=== PATIENT | female | born 1980 | race Caucasian/White ===

== ENCOUNTER 2018-02-21 11:01 | Outpatient (CLI) | payer OTHER ==
[~2018-02-21] VITALS: Ht 162.6 cm; Wt 84.9 kg
[~2018-02-21 11:01] MED LIST: DELTASONE20 M1 PO; LEVAQUIN500 MG PO; NAPROSYN500 MG PO; NORCO 5/3251 TABLET PO; PEN-VEE K,VEET500 MG PO
[2018-02-21 11:27] LABS: HEMATOCRIT 32.4 % (36.0-46.0); HEMOGLOBIN 10.5 G/DL (11.9-15.5); MCH 24.6 PG (29.0-34.0); MCHC 32.4 G/DL (30.0-36.0); MCV 75.9 FL (83-99); PLATELET COUNT 293 K/uL (156-360); RBC DIS.WIDTH-CV 17.2 % (11.8-14.6); RBC DIS.WIDTH-SD 45.7 % (39-53); RED BLOOD COUNT 4.27 M/uL (3.80-5.20); WHITE BLOOD COUNT 17.4 K/uL (4.1-10.2)
[2018-02-21 11:30] LABS: APPEARANCE SL.HAZY ((CLEAR)); BILIRUBIN MODERATE; BLOOD NEGATIVE; COLOR AMBER ((YELLOW)); GLUCOSE (STRIP) NEGATIVE; KETONES NEGATIVE; LEUKOCYTES TRACE; NITRITE NEGATIVE; PROTEIN (STRIP) 30; SPECIFIC GRAVITY 1.013 (1.000-1.030)
[2018-02-21 11:31] LABS: ICTOTEST ND
[2018-02-21 11:36] LABS: ALBUMIN 3.4 g/dL (3.2-4.8)
[2018-02-21 11:37] LABS: CHLORIDE 104 mEq/L (99-109); POTASSIUM 4.8 mEq/L (3.7-5.4); SODIUM 136 mEq/L (136-147)
[2018-02-21 11:38] LABS: BACTERIA RARE /HPF; EPITHELIAL CELLS 2+ /HPF; MUCUS TRACE /LPF; RED BLOOD CELLS 0-5 /HPF (0-5); UCUL ADDED? YES
[2018-02-21 11:39] LABS: GLUCOSE 93 mg/dL (70-99); TOTAL PROTEIN 6.8 g/dL (6.4-8.3)
[2018-02-21 11:41] LABS: TOTAL BILIRUBIN 9.2 mg/dL (0.0-1.0)
[2018-02-21 11:42] LABS: ALKALINE PHOSPHATASE 206 IU/L (3-129)
[2018-02-21 11:43] LABS: CREATININE 0.8 mg/dL (0.6-1.3); GFR ESTIMATE (CALCULATED) > 59 mL/min/
[2018-02-21 11:44] LABS: UREA NITROGEN (BUN) 5 mg/dL (9-23)
[2018-02-21 11:46] LABS: ALT (GPT) 486 IU/L (3-49)
[2018-02-21 11:51] LABS: AST (GOT) 1042 IU/L (2-34)
[2018-02-21 12:09] LABS: QUANTITATIVE HCG 23214.7 MIU/ML
[2018-02-21 12:31] LABS: DIRECT BILIRUBIN 7.2 mg/dL (0.0-0.3)
[2018-02-21 13:31] VITALS: BP 124/79
[2018-02-21] MEDS ORDERED: PRENATAL TABLE1 EAC3 PO (14:01)
[2018-02-21] MEDS ORDERED: TYLENOL EXTRA500 MG PO (14:02)
[2018-02-21 14:18] LABS: UR CREATININE CONCENTRATION 153.7 MG/DL
[2018-02-21 14:36] LABS: AMPHETAMINE NEGATIVE (500 ng/mL); BARBITURATES NEGATIVE (200 ng/mL); BENZODIAZEPINES NEGATIVE (150 ng/mL); BUPRENORPHINE NEGATIVE (10 ng/mL); COCAINE NEGATIVE (150 ng/mL); METHADONE NEGATIVE (200 ng/mL); METHAMPHETAMINE NEGATIVE (500 ng/mL); OPIATES (MORPHINE) NEGATIVE (100 ng/mL); OXYCODONE NEGATIVE (100 ng/mL); PHENCYCLIDINE NEGATIVE (25 ng/mL); PROPOXYPHENE NEGATIVE (300 ng/mL); THC CANNABINOIDS PRESUMPTIVE POSITIVE (50 ng/mL); TRICYCLIC ANTIDEPRESSANTS NEGATIVE (300 ng/mL)
[2018-02-21 16:02] VITALS: BP 135/85
[2018-02-21 17:07] LABS: INTER. NORMALIZED RATIO 1.1
[2018-02-21 18:21] VITALS: BP 115/66
[2018-02-21 20:22] VITALS: BP 134/63
[2018-02-21 20:38] VITALS: BP 152/72
[2018-02-22 01:06] VITALS: BP 126/86
[2018-02-22 06:54] LABS: BASOPHIL (%) 0.3 % (0-1); EOSINOPHIL (%) 1.2 % (0-5); EOSINOPHIL COUNT 0.2 K/uL (0-0.3); HEMATOCRIT 26.3 % (36.0-46.0); HEMOGLOBIN 8.4 G/DL (11.9-15.5); IMMATURE GRANULOCYTE (%) 1.7 % (0.0-0.7); LYMPHOCYTE (%) 11.7 % (15-42); LYMPHOCYTE COUNT 1.7 K/uL (1.0-2.8); MCH 24.1 PG (29.0-34.0); MCHC 31.9 G/DL (30.0-36.0); MCV 75.4 FL (83-99); MONOCYTE (%) 7.1 % (3-12); NEUTROPHIL COUNT 11.1 K/uL (1.8-6.4); PLATELET COUNT 240 K/uL (156-360); RBC DIS.WIDTH-CV 17.2 % (11.8-14.6); RBC DIS.WIDTH-SD 45.5 % (39-53); RED BLOOD COUNT 3.49 M/uL (3.80-5.20); WHITE BLOOD COUNT 14.2 K/uL (4.1-10.2)
[2018-02-22 07:12] LABS: ALBUMIN 2.6 G/DL (3.2-4.8); ALKALINE PHOSPHATASE 140 IU/L (3-129); ALT (GPT) 313 IU/L (3-49); AST (GOT) 701 IU/L (2-34); CHLORIDE 104 MEQ/L (99-109); CREATININE 0.7 MG/DL (0.6-1.3); GFR ESTIMATE (CALCULATED) > 59 mL/min/; GLUCOSE 80 mg/dL (70-99); SODIUM 138 MEQ/L (136-147); TOTAL BILIRUBIN 8.7 MG/DL (0.0-1.0); TOTAL PROTEIN 4.9 G/DL (6.4-8.3); UREA NITROGEN (BUN) 5 mg/dL (9-23)
[2018-02-22 07:13] LABS: POTASSIUM 3.8 MEQ/L (3.7-5.4)
[2018-02-22 07:15] LABS: ALBUMIN 2.6 G/DL (3.2-4.8); ALKALINE PHOSPHATASE 149 IU/L (3-129); ALT (GPT) 300 IU/L (3-49); AST (GOT) 678 IU/L (2-34); CHLORIDE 105 MEQ/L (99-109); CREATININE 0.6 MG/DL (0.6-1.3); GFR ESTIMATE (CALCULATED) > 59 mL/min/; GLUCOSE 80 mg/dL (70-99); POTASSIUM 3.8 MEQ/L (3.7-5.4); SODIUM 140 MEQ/L (136-147); TOTAL BILIRUBIN 8.6 MG/DL (0.0-1.0); TOTAL PROTEIN 4.8 G/DL (6.4-8.3); UREA NITROGEN (BUN) 5 mg/dL (9-23)
[2018-02-22 07:28] LABS: FIBRINOGEN 284 mg/dL (150-450); INTER. NORMALIZED RATIO 1.1
[2018-02-22 07:30] LABS: PTT 27.2 SEC (25-37)
[2018-02-22 08:20] VITALS: BP 141/71
[2018-02-22 14:39] LABS: HEPATITIS B SURFACE ANTIGEN Nonreactive
[2018-02-22 14:40] LABS: ANTI-HEPATITIS A VIRUS (IGM) Nonreactive; HEPATITIS C ANTIBODY REACTIVE
[2018-02-22 14:41] LABS: ANTI-HEPATITIS B CORE (IGM) Nonreactive
[2018-02-23 18:24] LABS: ANTI-SMOOTH MUSCLE (Actin)+ <20 U (<20)
[2018-02-23 20:18] LABS: HCV RNA (IU/mL) 2070000 IU/mL (())
[2018-02-24 14:18] LABS: HCV RNA (LOG IU/mL) 6.32 (())
[2018-02-24 17:57] LABS: MITOCHONDRIAL (M2) ANTIBODIES+ <=20.0 U (<=20.0)
== END 2018-02-22 10:05 | disposition home or self-care (01) ==
LOC: EME 11:01 → LDRP-OP 11:01 → EDSTATUS 13:01 → 2WEST 13:02
PROVIDERS: Advanced Practice Midwife; Emergency Medicine; Internal Medicine Gastroenterology; Obstetrics & Gynecology
DX: O99.89 Other specified diseases and conditions complicating pregnancy, childbirth and the puerperium (principal); O09.523 Supervision of elderly multigravida, third trimester; Z3A.32 32 weeks gestation of pregnancy; O26.893 Other specified pregnancy related conditions, third trimester; R74.8 Abnormal levels of other serum enzymes; R87.613 High grade squamous intraepithelial lesion on cytologic smear of cervix (HGSIL); Z86.19 Personal history of other infectious and parasitic diseases; O99.333 Smoking (tobacco) complicating pregnancy, third trimester; F17.200 Nicotine dependence, unspecified, uncomplicated; K92.1 Melena
CPT/HCPCS: 59025; 76705; 76805; 80053; 80074; 81003; 82140; 82248; 82570; 83516 90; 83615; 84156; 84550; 84702; 84999; 85025; 85027; 85384; 85610; 85730; 86038; 86256 90; 87086; 87522 90; 99281; 99284; G0378

== ENCOUNTER 2018-02-24 00:12 | Outpatient (CLI) | payer OTHER ==
[2018-02-24] VITALS (10 sets, daily range): BP systolic 120–141; BP diastolic 66–83
[~2018-02-24] VITALS: Ht 162.6 cm; Wt 84.8 kg
[~2018-02-24 00:12] MED LIST changes: +PRENATAL TABLE1 EAC3 PO; +TYLENOL EXTRA500 MG PO
[2018-02-24 01:20] LABS: AMPHETAMINE NEGATIVE (500 ng/mL); BARBITURATES NEGATIVE (200 ng/mL); BENZODIAZEPINES NEGATIVE (150 ng/mL); BUPRENORPHINE NEGATIVE (10 ng/mL); COCAINE NEGATIVE (150 ng/mL); METHADONE NEGATIVE (200 ng/mL); METHAMPHETAMINE NEGATIVE (500 ng/mL); OPIATES (MORPHINE) NEGATIVE (100 ng/mL); OXYCODONE NEGATIVE (100 ng/mL); PHENCYCLIDINE NEGATIVE (25 ng/mL); PROPOXYPHENE NEGATIVE (300 ng/mL); THC CANNABINOIDS PRESUMPTIVE POSITIVE (50 ng/mL); TRICYCLIC ANTIDEPRESSANTS NEGATIVE (300 ng/mL)
[2018-02-24 01:56] LABS: HEMATOCRIT 28.4 % (36.0-46.0); HEMOGLOBIN 9.5 G/DL (11.9-15.5); MCH 24.9 PG (29.0-34.0); MCHC 33.5 G/DL (30.0-36.0); MCV 74.5 FL (83-99); PLATELET COUNT 252 K/uL (156-360); RBC DIS.WIDTH-CV 18.2 % (11.8-14.6); RBC DIS.WIDTH-SD 45.4 % (39-53); RED BLOOD COUNT 3.81 M/uL (3.80-5.20); WHITE BLOOD COUNT 17.5 K/uL (4.1-10.2)
[2018-02-24 02:17] LABS: BASOPHIL (%) 0.3 % (0-1); BASOPHIL COUNT 0.1 K/uL (0-0.1); EOSINOPHIL (%) 1.2 % (0-5); EOSINOPHIL COUNT 0.2 K/uL (0-0.3); IMMATURE GRANULOCYTE (%) 1.8 % (0.0-0.7); LYMPHOCYTE (%) 14.7 % (15-42); LYMPHOCYTE COUNT 2.6 K/uL (1.0-2.8); MONOCYTE (%) 7.1 % (3-12); MONOCYTE COUNT 1.3 K/uL (0-0.8); NEUTROPHIL (%) 74.9 % (45-76); NEUTROPHIL COUNT 13.3 K/uL (1.8-6.4)
[2018-02-24 02:22] LABS: ALBUMIN 2.9 g/dL (3.2-4.8); CHLORIDE 103 mEq/L (99-109); POTASSIUM 3.9 mEq/L (3.7-5.4); SODIUM 137 mEq/L (136-147)
[2018-02-24 02:23] LABS: AMYLASE 74 IU/L (1-118)
[2018-02-24 02:23] LABS: APPEARANCE SL.HAZY ((CLEAR)); BILIRUBIN SMALL; BLOOD NEGATIVE; COLOR AMBER ((YELLOW)); GLUCOSE (STRIP) NEGATIVE; KETONES NEGATIVE; LEUKOCYTES NEGATIVE; NITRITE NEGATIVE; PROTEIN (STRIP) NEGATIVE; SPECIFIC GRAVITY 1.006 (1.000-1.030)
[2018-02-24 02:24] LABS: SOURCE SWAB
[2018-02-24 02:24] LABS: GLUCOSE 77 mg/dL (70-99)
[2018-02-24 02:25] LABS: TOTAL PROTEIN 5.6 g/dL (6.4-8.3)
[2018-02-24 02:26] LABS: TOTAL BILIRUBIN 12.3 mg/dL (0.0-1.0)
[2018-02-24 02:28] LABS: ALKALINE PHOSPHATASE 204 IU/L (3-129); CREATININE 0.7 mg/dL (0.6-1.3); GFR ESTIMATE (CALCULATED) > 59 mL/min/
[2018-02-24 02:29] LABS: UREA NITROGEN (BUN) 4 mg/dL (9-23)
[2018-02-24 02:30] LABS: AST (GOT) 629 IU/L (2-34)
[2018-02-24 02:31] LABS: ALT (GPT) 359 IU/L (3-49); URIC ACID 3.1 mg/dL (3.1-9.2)
[2018-02-24 02:32] LABS: LIPASE 28 U/L (1.0-51.0)
[2018-02-24 02:34] LABS: BACTERIA RARE /HPF; EPITHELIAL CELLS 1+ /HPF; MUCUS TRACE /LPF; RED BLOOD CELLS 0-5 /HPF (0-5)
[2018-02-24 02:44] LABS: DIRECT BILIRUBIN 9.8 mg/dL (0.0-0.3)
[2018-02-24 03:20] LABS: GROUP B STREP NEGATIVE (NEGATIVE)
[2018-02-24 03:47] LABS: CANDIDA DNA PROBE NEGATIVE; GARDNERELLA DNA PROBE POSITIVE; TRICHOMONAS DNA PROBE NEGATIVE
[2018-02-24 04:17] LABS: FIBRINOGEN 295 mg/dL (150-450); INTER. NORMALIZED RATIO 1.1
[2018-02-24 04:18] LABS: UR CREATININE CONCENTRATION 53.6 MG/DL
[2018-02-24 04:19] LABS: PTT 25.6 SEC (25-37)
[2018-02-24 04:51] LABS: LACTATE DEHYDROGENASE 157 IU/L (20-246)
[2018-02-24 10:57] LABS: HEPATITIS B SURFACE ANTIGEN Nonreactive
[2018-02-24 11:01] LABS: TREPONEMA ANTIBODY NEGATIVE (NEGATIVE)
[2018-02-24 13:42] LABS: HEMOGLOBIN A1c (GLYCOHEMOGLOB) 5.4 % (Below 5.7)
[2018-03-01 12:24] LABS: HCV RNA (LOG IU/mL) 5.53 (())
== END 2018-02-24 07:59 | disposition short-term general hospital (02) ==
LOC: LDRP-OP 00:12 → 2WEST 00:13 → LDRP-OP 04-16 10:30
PROVIDERS: Advanced Practice Midwife; Obstetrics & Gynecology
DX: O42.913 Preterm premature rupture of membranes, unspecified as to length of time between rupture and onset of labor, third trimester (principal); O98.413 Viral hepatitis complicating pregnancy, third trimester; B19.20 Unspecified viral hepatitis C without hepatic coma; O99.333 Smoking (tobacco) complicating pregnancy, third trimester; F17.210 Nicotine dependence, cigarettes, uncomplicated; O99.343 Other mental disorders complicating pregnancy, third trimester; F41.9 Anxiety disorder, unspecified; Z3A.33 33 weeks gestation of pregnancy; O09.523 Supervision of elderly multigravida, third trimester; O99.323 Drug use complicating pregnancy, third trimester; F11.11 Opioid abuse, in remission; F12.10 Cannabis abuse, uncomplicated
CPT/HCPCS: 59025; 80053; 80074; 80076; 81003; 82140; 82150; 82248; 82570; 83036; 83615; 83690; 84156; 84550; 84999; 85025; 85027; 85384; 85610; 85730; 86762; 86780; 86850; 86900; 86901; 87086; 87340; 87480; 87491; 87510; 87522 90; 87591; 87653; 87660; G0378; J0290; J0702; J3475; J7050; J7120